=== PATIENT | female | born 1990 | race Caucasian/White ===

== ENCOUNTER → 2018-07-13 | Outpatient (CLI) | payer OTHER ==
--- NOTE | 2018-07-14 10:12 | MR ---
EXAMINATION TYPE: MR brain/cspine wo/w DATE OF EXAM: 07/13/2018 COMPARISON: NONE HISTORY: 28-year-old female Migraines, neck pain, DDD TECHNIQUE: Multiplanar, multisequence images of the brain and brainstem were acquired before and aft er administration of 6.5 mL IV Gadavist. Diffusion weighted imaging is performed. Additional multip lanar, multisequence images of the cervical spine before and after IV contrast administration. FINDINGS: BRAIN: No evidence for acute infarction, hemorrhage, mass effect, midline shift, herniation, effacement of b [place] cisterns, or extra-axial fluid collection. The ventricles and sulci are age-appropriate. Major intracranial flow voids are intact. T2/FLAIR weighted sequences show no white matter signal abnormality. Midline structures demonstrate a 7 mm T1 and T2 isointense, nonenhancing versus hypoenhancing lesion in the suprasellar cistern along the superior margin of the pituitary gland and abutting the undersur face of the optic chiasm. Otherwise, midline structures show normal morphology. The craniocervical j unction is normal. Post contrast images demonstrate no evidence of pathologic enhancement. Dural venous sinuses are pat ent. The visualized sinuses are clear and the globes are intact. CERVICAL SPINE: No craniocervical junction abnormality, predental space widening, or prevertebral soft tissue swellin g. Reversal of the normal cervical lordosis but with preserved alignment. Minimal early disc desiccation in the upper to mid carpal spine. Disc interspaces are maintained. No focal disc herniation. No spinal canal or neuroforaminal stenosis. Normal course, caliber, and signal intensity of the cervical spinal cord. No abnormal enhancement wit hin the spinal canal. No suspicious bone marrow replacement. IMPRESSION: BRAIN: 1. No acute intracranial abnormality seen. No T2 weighted white matter signal abnormality. 2. A 7 mm isointense, nonenhancing versus hypovascular lesion in the suprasellar cistern abutting the superior margin of the pituitary gland and the undersurface of the optic chiasm. Recommend pituitary MRI to attempt further characterization as to the epicenter of the lesion whether arising from the p ituitary gland, arising from the suprasellar cistern, or related to the optic chiasm. Pituitary micro adenoma, an unusual Rathke's cleft cyst, suprasellar hamartoma, and optic glioma are some of the diff erential considerations. CERVICAL SPINE: 1. Reversal of the normal cervical lordosis could be positional or due to muscle spasm. 2. There is very minimal disc desiccation suggesting very early degenerative changes of the intervert ebral discs. No focal disc herniation or significant spinal canal or foraminal stenosis.
== END ==
LOC: RADMRIMAIN 12:49
PROVIDERS: ATTEND Family Medicine
DX: R51 Headache (principal); M54.2 Cervicalgia
CPT/HCPCS: 70553; 72156; A9585

== ENCOUNTER → 2018-08-09 | Outpatient (CLI) | payer OTHER ==
--- NOTE | 2018-08-09 22:42 | MR ---
EXAMINATION TYPE: MR angio head wo con DATE OF EXAM: 08/09/2018 COMPARISON: MRI brain July 13, 2018 HISTORY: Migraines, abnormal MRI TECHNIQUE: Time of flight images focusing on the [place] were performed without contrast.. 2-D and 3-D postprocessing imaging is performed on the MRI scanner and reviewed. FINDINGS: There is slightly larger or dominant left vertebral artery. Vertebral arteries are patent t o basilar junction. There is no significant focal stenosis or aneurysmal change in the posterior circ ulation. There is a patent left-sided posterior communicating artery. There is hypoplastic right post erior communicating artery. Images of the anterior circulation show patent anterior communicating artery. No significant focal st enosis or aneurysmal change is present. IMPRESSION: No aneurysmal change at level of [place].
--- NOTE | 2018-08-09 23:35 | MR ---
EXAMINATION TYPE: MR pituitary wo/w con DATE OF EXAM: 08/09/2018 COMPARISON: None HISTORY: Migraines, abnormal MRI TECHNIQUE: Multiplanar, multisequence images of the brain and brainstem is performed without and with IV contras t, utilizing 6 mL intravenous Gadavist . FINDINGS: There is a rounded 5 mm nonenhancing focus on the anterior aspect of the sella turcica. This is not c hanged in size compared to 07/13/2018. On the contrast T1 images there is decreased signal across the superior aspect of the sella turcica that appears to be nonanatomic and consistent with artifact. Th ere is lack of enhancement of the pituitary gland compared to last exam. There is normal enhancement of the pituitary stalk which is somewhat thickened. I do not see a mass associated with the pituitary gland. IMPRESSION: Nonenhancing small nodular density on the anterior aspect of the pituitary stalk and matthew cent to the anterior clinoid process. This appears stable compared to old exam. The location and appe arance is suggestive of benign etiology. There is on this exam lack of enhancement of the pituitary g land that was more normal in appearance on the last exam. There is also lack of enhancement of the ve nous sinuses that suggests different timing of the exam and not intrinsic pituitary gland abnormality .
== END ==
LOC: RADMRIMAIN 18:11
PROVIDERS: ATTEND Family Medicine
DX: G43.909 Migraine, unspecified, not intractable, without status migrainosus (principal); R93.0 Abnormal findings on diagnostic imaging of skull and head, not elsewhere classified
CPT/HCPCS: 70544; 70553; A9585

== ENCOUNTER → 2019-03-28 | Outpatient (CLI) | payer OTHER ==
--- NOTE | 2019-03-29 07:21 | US ---
EXAMINATION TYPE: US pelvic complete DATE OF EXAM: 03/28/2019 COMPARISON: US CLINICAL HISTORY: O03.30 Unspecified complication following. Pt had miscarriage. Pelvic pain x 1 week . PCOS. Hx pt had IUD surgically removed. A1. TECHNIQUE: Transabdominal (TA). Date of LMP: 01/07/2019 EXAM MEASUREMENTS: Uterus: 8.2 x 6.2 x 4.5 cm Endometrial Stripe: 0.80 cm Right Ovary: 3.2 x 1.7 x 1.6 cm Left Ovary: 4.0 x 2.4 x 1.6 cm 1. Uterus: Anteverted appears to be an arcuate uterus on image 21/38 2. Endometrium: appears wnl 3. Right Ovary: Follicles seen, appears wnl 4. Left Ovary: appears wnl 5. Bilateral Adnexa: appear wnl 6. Posterior cul-de-sac: appears wnl IMPRESSION: 1. 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 Endometrial contour c ould be further evaluated with pelvic MRI or hysterosalpingogram. There is further clinical concern. 2. Physiologic ovarian follicles without sizable cyst at this time. Endometrial thickness is within n ormal limits.
== END | disposition home or self-care (01) ==
LOC: RADUSMAIN 17:52
PROVIDERS: ATTEND Family Medicine
DX: O03.30 Unspecified complication following incomplete spontaneous abortion (principal); R10.2 Pelvic and perineal pain; Z88.0 Allergy status to penicillin; Z91.010 Allergy to peanuts
CPT/HCPCS: 76856

== ENCOUNTER → 2019-04-14 | Outpatient (CLI) | payer OTHER ==
--- NOTE | 2019-04-16 20:16 | MR ---
EXAMINATION TYPE: MR brain wo/w con DATE OF EXAM: 04/14/2019 COMPARISON: 07/13/2018 HISTORY: Migraines, F/U to pituitary neoplasm TECHNIQUE: Multiplanar, multisequence images of the brain and brainstem is performed without and with IV contras t, utilizing 6 mL intravenous Gadavist . FINDINGS: Ventricles of normal size. There is no mass effect nor midline shift. There is no sign of intracrania l hemorrhage. There is no evidence of cerebral edema. Brainstem appears intact. There is no evidence of cortical infarct. Pituitary stalk appears normal. Optic chiasm appears normal. There is slight dec reased enhancement of the left side of the pituitary gland compared to the right. I do not see a disc rete mass. There is normal contrast opacification of the venous sinuses and the suprasellar cistern. There is normal contrast enhancement of the cavernous sinus. IMPRESSION: No definite sellar mass. Normal contrast enhancement of the cisterns. Negative MR scan of the brain. No adverse change compared to old exam of 08/09/2018. Old exam shows decreased signal in the contrast coronal images on the right side of the pituitary gla nd and sella turcica is apparent artifact.
== END | disposition home or self-care (01) ==
LOC: RADMRIMAIN 18:02
PROVIDERS: ATTEND Family Medicine
DX: D35.2 Benign neoplasm of pituitary gland (principal); G43.909 Migraine, unspecified, not intractable, without status migrainosus
CPT/HCPCS: 70553; A9585

== ENCOUNTER → 2019-04-24 | Outpatient (CLI) | payer OTHER ==
--- NOTE | 2019-04-25 | MR ---
EXAMINATION TYPE: MR pelvis wo/w con DATE OF EXAM: 04/24/2019 COMPARISON: None HISTORY: No prior, abnormal US, arcuate uterus, history of IUD and removal CONTRAST: Standard multiplanar, multisequence MRI departmental protocol utilizing 6ml mL intravenous Gadavist g adolin[place] contrast. FINDINGS: Uterus is anteverted. Endometrium has normal signal pattern. There is no endometrial thickening. Vagi na appears normal. There is small amount of free fluid in the cul-de-sac. Ovaries show multiple folli cular type cysts bilaterally. There is no adnexal mass. Urinary bladder appears normal. There are sma ll posterior L5-S1 lumbar disc herniation. There is mild deformity of the uterine fundus consistent with arcuate uterus. IMPRESSION: Mild arcuate uterus. Tiny amount of free fluid in the pelvis could be physiologic. There is noted a small posterior L5-S1 lumbar disc herniation without spinal stenosis.
== END | disposition home or self-care (01) ==
LOC: RADMRIMAIN 18:31
PROVIDERS: ATTEND Family Medicine
DX: Q51.810 Arcuate uterus (principal)
CPT/HCPCS: 72197; A9585

== ENCOUNTER 2019-12-08 10:07 | Emergency (ER) | payer OTHER ==
[2019-12-08 11:18] LABS: Basophils % (A) 1 %; Eosinophils # (A) 0.1 k/uL (0-0.7); Eosinophils % (A) 1 %; HCT 43.4 % (34.0-46.0); HGB 14.3 gm/dL (11.4-16.0); Lymphocytes # (A) 1.9 k/uL (1.0-4.8); Lymphocytes % (A) 37 %; MCH 29.9 pg (25.0-35.0); MCV 90.5 fL (80.0-100.0); Monocytes # (A) 0.3 k/uL (0-1.0); Monocytes % (A) 5 %; Neutrophils # (A) 2.8 k/uL (1.3-7.7); Neutrophils % (A) 53 %; Platelet Count 225 k/uL (150-450); RDW 12.9 % (11.5-15.5); WBC 5.2 k/uL (3.8-10.6)
--- NOTE | 2019-12-08 11:26 | ED ---
Abdominal Pain HPI - General Chief Complaint: Abdominal Pain Stated Complaint: poss miscarriage Time Seen by Provider: 12/08/19 10:20 Source: patient, RN notes reviewed Mode of arrival: ambulatory Limitations: no limitations - History of Present Illness Initial Comments: This a 29-year-old female presents emergency Department chief complaint of spotting in early . Patient states she took a Prevacid just yesterday. She states that she had some lower abdominal cramping and bright red blood when she urinated this morning. Patient states that she does not have continuous bleeding no flank pain. Patient is A1 states that she had a miscarriage in February of last year. Patient denies any fevers or chills no chest pain or shortness breath she's had slight nausea no vomiting no diarrhea - Related Data Home Medications Medication Instructions Recorded Confirmed No Known Home Medications 07/26/17 07/26/17 Allergies Allergy/AdvReac Type Severity Reaction Status Date / Time peanut Allergy Anaphylaxis Verified 07/26/17 22:25 Penicillins Allergy Rash/Hives Verified 07/26/17 22:25 Review of Systems ROS Statement: Those systems with pertinent positive or pertinent negative responses have been documented in the HPI. ROS Other: All systems not noted in ROS Statement are negative. Past Medical History Additional Past Medical History / Comment(s): clotting disorder-prothrombin gene mutation, mthfr positive History of Any Multi-Drug Resistant Organisms: None Reported Past Surgical History: Orthopedic Surgery Past Psychological History: Depression Smoking Status: Never smoker Past Alcohol Use History: Occasional Past Drug Use History: Marijuana General Exam Limitations: no limitations General appearance: alert, in no apparent distress Head exam: Present: atraumatic, normocephalic, normal inspection Eye exam: Present: normal appearance, PERRL, EOMI. Absent: scleral icterus, conjunctival injection, periorbital swelling ENT exam: Present: normal exam, normal oropharynx, mucous membranes moist Neck exam: Present: normal inspection, full ROM. Absent: tenderness, meningismus, lymphadenopathy Respiratory exam: Present: normal lung sounds bilaterally. Absent: respiratory distress, wheezes, rales, rhonchi, stridor Cardiovascular Exam: Present: regular rate (Patient was only tachycardic on triage.), normal rhythm, normal heart sounds. Absent: systolic murmur, diastolic murmur, rubs, gallop, clicks GI/Abdominal exam: Present: soft, normal bowel sounds. Absent: distended, tenderness, guarding, rebound, rigid Back exam: Absent: CVA tenderness (R), CVA tenderness (L) Course Vital Signs 12/08/19 12/08/19 10:16 11:21 Temperature 98.5 F Pulse Rate 128 H 89 Respiratory 17 18 Rate Blood Pressure 143/82 117/72 O2 Sat by Pulse 100 97 Oximetry Medical Decision Making - Medical Decision Making SHOWS POSSIBLE EARLY GESTATIONAL SAC, BETA HCG IS 2170 PATIENT IS A POSITIVE BLOOD TYPE AND DOES NOT REQUIRE RHOGAM. PATIENT BE GIVEN PRESCRIPTION FOR repeat hCG. Patient provided on-call PILE [employer] NO[employer]LE[employer] Dr. Rosales. 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 - Lab Data Result diagrams: 12/08/19 10:55 Lab Results 12/08/19 12/08/19 12/08/19 Range/Units 10:55 10:55 10:55 WBC 5.2 (3.8-10.6) k/uL RBC 4.80 (3.80-5.40) m/uL Hgb 14.3 (11.4-16.0) gm/dL Hct 43.4 (34.0-46.0) % MCV 90.5 (80.0-100.0) fL MCH 29.9 (25.0-35.0) pg MCHC 33.0 (31.0-37.0) g/dL RDW 12.9 (11.5-15.5) % Plt Count 225 (150-450) k/uL Neutrophils % 53 % Lymphocytes % 37 % Monocytes % 5 % Eosinophils % 1 % Basophils % 1 % Neutrophils # 2.8 (1.3-7.7) k/uL Lymphocytes # 1.9 (1.0-4.8) k/uL Monocytes # 0.3 (0-1.0) k/uL Eosinophils # 0.1 (0-0.7) k/uL Basophils # 0.0 (0-0.2) k/uL HCG, Quant 2127.3 mIU/mL Urine Color Yellow Urine Appearance Clear (Clear) Urine pH 7.5 (5.0-8.0) Ur Specific [place] 1.024 (1.001-1.035) Urine Protein Trace H (Negative) Urine Glucose (UA) Negative (Negative) Urine Ketones Negative (Negative) Urine Blood Small H (Negative) Urine Nitrite Negative (Negative) Urine Bilirubin Negative (Negative) Urine Urobilinogen <2.0 (<2.0) mg/dL Ur Leukocyte Esterase Negative (Negative) Urine RBC 2 (0-5) /hpf Urine WBC 2 (0-5) /hpf Ur Squamous Epith Cells 4 (0-4) /hpf Urine Bacteria Rare H (None) /hpf Urine Mucus Rare H (None) /hpf Blood Type Blood Type Recheck Bld Type Recheck Status 12/08/19 Range/Units 11:15 WBC (3.8-10.6) k/uL RBC (3.80-5.40) m/uL Hgb (11.4-16.0) gm/dL Hct (34.0-46.0) % MCV (80.0-100.0) fL MCH (25.0-35.0) pg MCHC (31.0-37.0) g/dL RDW (11.5-15.5) % Plt Count (150-450) k/uL Neutrophils % % Lymphocytes % % Monocytes % % Eosinophils % % Basophils % % Neutrophils # (1.3-7.7) k/uL Lymphocytes # (1.0-4.8) k/uL Monocytes # (0-1.0) k/uL Eosinophils # (0-0.7) k/uL Basophils # (0-0.2) k/uL HCG, Quant mIU/mL Urine Color Urine Appearance (Clear) Urine pH (5.0-8.0) Ur Specific [place] (1.001-1.035) Urine Protein (Negative) Urine Glucose (UA) (Negative) Urine Ketones (Negative) Urine Blood (Negative) Urine Nitrite (Negative) Urine Bilirubin (Negative) Urine Urobilinogen (<2.0) mg/dL Ur Leukocyte Esterase (Negative) Urine RBC (0-5) /hpf Urine WBC (0-5) /hpf Ur Squamous Epith Cells (0-4) /hpf Urine Bacteria (None) /hpf Urine Mucus (None) /hpf Blood Type A Positive Blood Type Recheck No Previous Record Bld Type Recheck Status ABR ONLY Disposition Clinical Impression: Threatened miscarriage in early Disposition: HOME SELF-CARE Condition: Stable Instructions (If sedation given, give patient instructions): Threatened Miscarriage (ED) Additional Instructions: Please return to the Emergency Department if symptoms worsen or any other concerns. Is patient prescribed a controlled substance at d/c from ED?: No Referrals: Miguel Hodge DO [Primary Care Provider] - 1-2 days Shannon Rosales MD [STAFF PHYSICIAN] - 1-2 days Abhilash Rodríguez MD [STAFF PHYSICIAN] - 1-2 days Time of Disposition: 12:35
[2019-12-08 11:33] LABS: Appearance,Urine Clear (Clear); Bacteria,Urine Rare /hpf; Bilirubin,Urine Negative (Negative); Blood,Urine Small (Negative); Color,Urine Yellow; Glucose,Urine (UA) Negative (Negative); Ketones,Urine Negative (Negative); Leukocyte Esterase,Urine Negative (Negative); Mucus,Urine Rare /hpf; Nitrite,Urine Negative (Negative); PH, Urine 7.5 (5.0-8.0); Protein,Urine Trace (Negative); RBC,Urine 2 /hpf (0-5); Specific Gravity,Urine 1.024 (1.001-1.035); Squamous Epithelial Cell,Urine 4 /hpf (0-4); Urobilinogen,Urine <2.0 mg/dL (<2.0); WBC,Urine 2 /hpf (0-5)
--- NOTE | 2019-12-08 11:41 | US ---
EXAMINATION TYPE: Transabdominal DATE OF EXAM: 12/08/2019 11:18 AM COMPARISON: NONE CLINICAL HISTORY: spotting, pain. EXAM PERFORMED: Transvaginal (TV) and Transabdominal (TA) EXAM MEASUREMENTS: GESTATIONAL AGE / DATING Physician Established: Not yet established Dates by LMP: (5 weeks/0 days) EDC: 08/09/2020 Dates by First Scan: No previous this is first scan ( Dates by Current Scan for: No pole seen at this time ( MATERNAL ANATOMY Uterus: 7.0 x 4.1 x 5.3 cm Right Ovary: 2.6 x 2.3 x 1.9 cm Left Ovary: 3.1 x 1.6 x 4.2 cm Post CDS / Adnexa: wnl Presence of free fluid: No Presence of corpus luteal cyst: No Presence of subchorionic bleed: No GESTATION / SURVEY MSD: 0.4 cm Too small to date IUP: No pole visualized, only too small to date anechoic area visualized, possible early gesta tional sac vs other Date of LMP: 11/03/2019 Beta HcG (if available): Not available at this time No pole visualized, only too small to date anechoic area visualized within endometrium, possibl e early gestational sac vs other IMPRESSION: Intraoperative endometrial fluid collection could represent early however no yo lk sac or pole are yet seen at this time and therefore anembryonic or ectopic pregnan cy are not excluded. Recommendation is for serial serum beta hCGs and pelvic ultrasound in 7-10 days.
[2019-12-08 12:50] VITALS: BP 107/67; PULSE 93; RESP 17; TEMP 98.6
== END 2019-12-08 12:50 | disposition home or self-care (01) ==
LOC: EC 10:07
DX: O20.0 Threatened abortion (principal); Z91.010 Allergy to peanuts; Z88.0 Allergy status to penicillin; Z86.2 Personal history of diseases of the blood and blood-forming organs and certain disorders involving the immune mechanism; Z3A.01 Less than 8 weeks gestation of pregnancy
CPT/HCPCS: 36415; 76801; 76817; 81001; 84702; 85025; 86900; 86901; 99284

== ENCOUNTER 2020-09-21 13:50 | Emergency (ER) | payer OTHER ==
[2020-09-21 14:35] VITALS: BP 128/59; PULSE 94; RESP 20; TEMP 98.6
--- NOTE | 2020-09-21 14:56 | ED ---
General Adult HPI - General Chief complaint: Abdominal Pain Stated complaint: NVD,14 weeks preg Time Seen by Provider: 09/21/20 14:37 Source: patient Mode of arrival: ambulatory Limitations: no limitations - History of Present Illness Initial comments: Dictation was produced using [employer] dictation software. please excuse any grammatical, word or spelling errors. This patient was cared for during a federal and state declared state of emergency secondary to Covid 19 Chief Complaint: 30-year-old female A 14 weeks presents with lower back and groin pain. History of Present Illness: Patient is a 30-year-old female she is 14 weeks . She has past medical history of lupus. She is 14 weeks . She has multiple miscarriages in the past. Patient states this is her first that's gone this far. States that one and this morning she had episode of lower back pain and pelvic pain. Patient states that her symptoms have improved. She is here to get an ultrasound. Patient does complain of some mild urinary frequency. Denies any vaginal discharge or vaginal bleeding. The ROS documented in this emergency department record has been reviewed and confirmed by me. Those systems with pertinent positive or negative responses have been documented in the HPI. All other systems are other negative and/or noncontributory. PHYSICAL EXAM: General Impression: Alert and oriented x3, not in acute distress HEENT: Normocephalic atraumatic, extra-ocular movements intact, pupils equal and reactive to light bilaterally, mucous membranes moist. Cardiovascular: Heart regular rate and rhythm Chest: Able to complete full sentences, no retractions, no tachypnea Abdomen: abdomen soft, non-tender, non-distended, no organomegaly Musculoskeletal: Pulses present and equal in all extremities, no peripheral patti a Motor: no focal deficits noted Neurological: CN II-XII grossly intact, no focal motor or sensory deficits noted Skin: Intact with no visualized rashes Psych: Normal affect and mood ED course: 30-year-old female who is 14 weeks presents with chief complaint of groin pain and back pain. She is here requesting a ultrasound of her baby. Signs upon arrival are within acceptable limits. Physical examination is benign. Patient refusing pelvic exam. ultrasound shows gestational age of 14 weeks 1 day. No acute Acute processes seen. Laboratory evaluation is unremarkable. Patient's 2+ ketones. Patient be discharged. - Related Data Home Medications Medication Instructions Recorded Confirmed No Known Home Medications 07/26/17 07/26/17 Allergies Allergy/AdvReac Type Severity Reaction Status Date / Time peanut Allergy Anaphylaxis Verified 09/21/20 14:35 Penicillins Allergy Rash/Hives Verified 09/21/20 14:35 Review of Systems ROS Statement: Those systems with pertinent positive or pertinent negative responses have been documented in the HPI. ROS Other: All systems not noted in ROS Statement are negative. Past Medical History Additional Past Medical History / Comment(s): clotting disorder-prothrombin gene mutation, mthfr positive, Lupus History of Any Multi-Drug Resistant Organisms: None Reported Past Surgical History: Orthopedic Surgery, Tonsillectomy Past Psychological History: Depression Smoking Status: Former smoker Past Alcohol Use History: Occasional Past Drug Use History: Marijuana General Exam Limitations: no limitations Course Vital Signs 09/21/20 14:32 Temperature 98.6 F Pulse Rate 94 Respiratory 20 Rate Blood Pressure 128/59 O2 Sat by Pulse 99 Oximetry Medical Decision Making - Lab Data Result diagrams: 09/21/20 15:02 09/21/20 15:02 Lab Results 09/21/20 09/21/20 09/21/20 Range/Units 15:02 15:02 15:02 WBC 11.0 H (3.8-10.6) k/uL RBC 4.27 (3.80-5.40) m/uL Hgb 13.7 (11.4-16.0) gm/dL Hct 38.8 (34.0-46.0) % MCV 90.8 (80.0-100.0) fL MCH 32.2 (25.0-35.0) pg MCHC 35.4 (31.0-37.0) g/dL RDW 12.2 (11.5-15.5) % Plt Count 234 (150-450) k/uL MPV 8.3 Neutrophils % 70 % Lymphocytes % 22 % Monocytes % 4 % Eosinophils % 3 % Basophils % 0 % Neutrophils # 7.7 (1.3-7.7) k/uL Lymphocytes # 2.4 (1.0-4.8) k/uL Monocytes # 0.4 (0-1.0) k/uL Eosinophils # 0.4 (0-0.7) k/uL Basophils # 0.0 (0-0.2) k/uL Sodium 134 L (137-145) mmol/L Potassium 4.1 (3.5-5.1) mmol/L Chloride 103 (98-107) mmol/L Carbon Dioxide 26 (22-30) mmol/L Anion Gap 5 mmol/L BUN 10 (7-17) mg/dL Creatinine 0.55 (0.52-1.04) mg/dL Est GFR (CKD-EPI)AfAm >90 (>60 ml/min/1.73 sqM) Est GFR (CKD-EPI)NonAf >90 (>60 ml/min/1.73 sqM) Glucose 93 (74-99) mg/dL Calcium 9.6 (8.4-10.2) mg/dL Total Bilirubin 0.4 (0.2-1.3) mg/dL AST 23 (14-36) U/L ALT 15 (4-34) U/L Alkaline Phosphatase 43 (38-126) U/L Total Protein 7.1 (6.3-8.2) g/dL Albumin 4.3 (3.5-5.0) g/dL Lipase 82 (23-300) U/L HCG, Quant 00802.5 mIU/mL Urine Color Yellow Urine Appearance Clear (Clear) Urine pH 6.5 (5.0-8.0) Ur Specific [place] 1.019 (1.001-1.035) Urine Protein Negative (Negative) Urine Glucose (UA) Negative (Negative) Urine Ketones 2+ H (Negative) Urine Blood Negative (Negative) Urine Nitrite Negative (Negative) Urine Bilirubin Negative (Negative) Urine Urobilinogen <2.0 (<2.0) mg/dL Ur Leukocyte Esterase Negative (Negative) Disposition Clinical Impression: Pelvic pain affecting Disposition: HOME SELF-CARE Condition: Good Instructions (If sedation given, give patient instructions): Pelvic Pain in Women (ED) Additional Instructions: Follow-up with your art educator. Is patient prescribed a controlled substance at d/c from ED?: No Referrals: Mgiuel Hodge DO [Primary Care Provider] - 1-2 days Time of Disposition: 16:11
[2020-09-21 15:11] LABS: Appearance,Urine Clear (Clear); Bilirubin,Urine Negative (Negative); Blood,Urine Negative (Negative); Color,Urine Yellow; Glucose,Urine (UA) Negative (Negative); Ketones,Urine 2+ (Negative); Leukocyte Esterase,Urine Negative (Negative); Nitrite,Urine Negative (Negative); PH, Urine 6.5 (5.0-8.0); Protein,Urine Negative (Negative); Specific Gravity,Urine 1.019 (1.001-1.035); Urobilinogen,Urine <2.0 mg/dL (<2.0)
[2020-09-21 15:12] LABS: Basophils % (A) 0 %; Eosinophils # (A) 0.4 k/uL (0-0.7); Eosinophils % (A) 3 %; HCT 38.8 % (34.0-46.0); HGB 13.7 gm/dL (11.4-16.0); Lymphocytes # (A) 2.4 k/uL (1.0-4.8); Lymphocytes % (A) 22 %; MCH 32.2 pg (25.0-35.0); MCHC 35.4 g/dL (31.0-37.0); MCV 90.8 fL (80.0-100.0); Mean Platelet Volume 8.3; Monocytes # (A) 0.4 k/uL (0-1.0); Monocytes % (A) 4 %; Neutrophils # (A) 7.7 k/uL (1.3-7.7); Neutrophils % (A) 70 %; Platelet Count 234 k/uL (150-450); RBC 4.27 m/uL (3.80-5.40); RDW 12.2 % (11.5-15.5)
[2020-09-21 15:20] LABS: ALT 15 U/L (4-34); AST 23 U/L (14-36); African American GFR (CKD) >90 (>60 ml/min/1.73 sqM); Albumin 4.3 g/dL (3.5-5.0); Alkaline Phosphatase 43 U/L (38-126); Anion Gap 5 mmol/L; Blood Urea Nitrogen 10 mg/dL (7-17); Calcium 9.6 mg/dL (8.4-10.2); Carbon Dioxide 26 mmol/L (22-30); Chloride 103 mmol/L (98-107); Glucose 93 mg/dL (74-99); Lipase 82 U/L (23-300); Non-African American GFR(CKD) >90 (>60 ml/min/1.73 sqM); Potassium 4.1 mmol/L (3.5-5.1); Sodium 134 mmol/L (137-145); Total Bilirubin 0.4 mg/dL (0.2-1.3); Total Protein 7.1 g/dL (6.3-8.2)
--- NOTE | 2020-09-21 15:54 | US ---
EXAMINATION TYPE: Transabdominal DATE OF EXAM: 09/21/2020 3:29 PM COMPARISON: NONE CLINICAL HISTORY: pain in . Pt states back pain and cramping denies bleeding EXAM PERFORMED: Transabdominal (TA) EXAM MEASUREMENTS: GESTATIONAL AGE / DATING Physician Established: (14 weeks/2 days) EDC: 03/20/2021 Dates by LMP: (14 weeks/2 days) EDC: 03/20/2021 Dates by First Scan: No prior Dates by Current Scan for: (14 weeks/1 days) EDC: 03/21/2021 MATERNAL ANATOMY Uterus: 14.4 x 9.9 x 3.1 cm Right Ovary: 2.0 x 2.5 x 3.1 cm Left Ovary: 2.4 x 1.2 x 2.8 cm Post CDS / Adnexa: wnl Presence of free fluid: No Presence of subchorionic bleed: No GESTATION / SURVEY CRL: 8.1 cm (14 weeks/1 days) MSD: wnl Heart Rate: 159 bpm Rhythm: Normal IUP: Viable IUP Single, viable IUP/ No abnormality visualized at this time IMPRESSION: Ultrasound gestational age is 14 weeks and 1 day. No complicating process seen.
[2020-09-21 16:09] LABS: HCG,Quantitative Serum 19718.5 mIU/mL
== END 2020-09-21 16:41 | disposition home or self-care (01) ==
LOC: EC 13:50
DX: O26.892 Other specified pregnancy related conditions, second trimester (principal); R10.2 Pelvic and perineal pain; Z3A.14 14 weeks gestation of pregnancy; Z87.891 Personal history of nicotine dependence; Z88.0 Allergy status to penicillin; Z91.010 Allergy to peanuts
CPT/HCPCS: 36415; 76801; 80053; 81003; 83690; 84702; 85025; 86850; 86900; 86901; 99284